=== PATIENT | female | born 1990 | race Caucasian/White ===

== ENCOUNTER → 2022-02-27 09:23 | Outpatient (BNVA) | payer OTHER, SELFPAY | PROVIDERS: Family Provider Family Medicine; PCP Family Medicine; Visit Provider Obstetrics & Gynecology | DX: N93.9 Abnormal uterine and vaginal bleeding, unspecified (principal) | CPT/HCPCS: 83001; 84146; 84443; 84702; 85025 ==

== ENCOUNTER → 2022-03-12 07:33 | Outpatient (BNVA) | payer OTHER, SELFPAY | PROVIDERS: Family Provider Family Medicine; PCP Family Medicine; Visit Provider Obstetrics & Gynecology | DX: N93.9 Abnormal uterine and vaginal bleeding, unspecified (principal) | CPT/HCPCS: 76830 ==

== ENCOUNTER → 2022-03-17 14:04 | Outpatient (BNVA) | payer OTHER, SELFPAY | PROVIDERS: Family Provider Family Medicine; PCP Family Medicine; Visit Provider Obstetrics & Gynecology | DX: Z12.4 Encounter for screening for malignant neoplasm of cervix (principal) | CPT/HCPCS: 87624 ==

== ENCOUNTER 2022-11-18 06:20 | Outpatient (CLI) | payer OTHER, SELFPAY ==
--- NOTE | 2022-11-18 06:45 | US_ITS ---
WS: [id number] RIGHT UPPER QUADRANT ULTRASOUND HISTORY: K81.1 - Chronic cholecystitis COMPARISON: 09/25/2014 Liver: 13.5 cm in length. Normal size liver and echogenicity. No bile duct dilatation or mass. Portal Vein: Normal hepatopetal flow with monophasic waveform. Gallbladder: Normally distended gallbladder with no stones or wall thickening. CBD: 0.3 cm Pancreas: Normal size and echogenicity. Right kidney: 10.5 cm in length. Normal size and echogenicity. No hydronephrosis or mass. Aorta and IVC: Unremarkable abdominal aorta and IVC. No ascites. US/US gall bladder 17674 IMPRESSION: Normal RIGHT upper quadrant ultrasound.
== END 2022-11-18 06:21 | disposition home or self-care (01) ==
PROVIDERS: PCP Family Medicine; Visit Provider Family Medicine
DX: K81.1 Chronic cholecystitis (principal)
CPT/HCPCS: 76705

== ENCOUNTER → 2023-11-02 08:52 | Outpatient (BNVA) | payer BC, SELFPAY | PROVIDERS: PCP Family Medicine; Visit Provider Obstetrics & Gynecology | DX: R10.2 Pelvic and perineal pain (principal) | CPT/HCPCS: 76830 ==

== ENCOUNTER 2023-12-14 15:16 | Observation (INO) | payer BC, SELFPAY ==
[2023-12-06 11:33] LABS: Basophils % 0.8 %; Eosinophils # 0.1 10^3/uL (0.0-0.8); Eosinophils % 2.2 %; Hematocrit 39.5 % (36-47); Lymphocytes # 1.8 10^3/uL (0.8-4.8); Lymphocytes % 36.4 %; Mean Corpuscular HGB Conc 33.2 g/dL (30-55); Mean Corpuscular Hemoglobin 29.6 pg (27-33); Mean Corpuscular Volume 89.4 fl (85-98); Mean Platelet Volume 10.5 fL (7.4-10.4); Monocytes # 0.3 10^3/uL (0.2-0.9); Monocytes % 6.8 %; Neutrophils # 2.68 10^3/uL (1.8-7.7); Neutrophils % 53.6 %; Nucleated Red Blood Cells % 0 %; Platelet Count 299 10^3/cmm (157-399); Red Blood Count 4.42 10^6/uL (3.85-5.65); Red Cell Distribution Width 13.1 % (12.1-15.1)
[2023-12-06 11:39] LABS: OR HCG Qualitative Urine Negative (Negative)
[2023-12-06 11:43] LABS: Add Urine Microscopic? YES; Bilirubin Urine Neg (Negative); Blood Urine Neg (Negative); Glucose Urine UA Norm (Normal); Ketones Urine 1+ (Negative); Leukocyte Esterase Urine Negative (Negative); Nitrate Urine Negative (Negative); Protein Urine Neg (Negative); Specific Gravity, Urine 1.025 (1.005-1.030); Urine Appearance Slightly Cloudy (CLEAR); Urine Color Yellow (Yellow); Urobilinogen Urine 1 mg/dL (Negative); pH Urine 5 (5-7)
[2023-12-06 11:47] LABS: Add Urine Culture? No; Bacteria Urine 1+ /hpf; WBC Urine RARE /hpf (0-5)
[2023-12-06 11:49] LABS: Alanine Aminotransferase 9 U/L (0-33); Albumin Level 3.9 g/dL (3.5-5.2); Alkaline Phosphatase 59 U/L (35-105); Anion Gap 12.9 (5-19); Aspartate Amino Transferase 13 U/L (0-32); Blood Urea Nitrogen 8 mg/dL (6-20); Calcium 8.6 mg/dL (8.5-10.5); Carbon Dioxide 22 mmol/L (22-29); Chloride 102 mmol/L (98-107); Glomerular Filtration Rate 113.8 mL/min (90-130); Glucose 119 mg/dL (65-115); Osmolality Calculated 275 mOsm/kg (285-295); Potassium 3.9 mmol/L (3.5-5.1); Sodium 133 mmol/L (136-145); Total Bilirubin 0.2 mg/dL (0.15-1.2); Total Protein 6.9 g/dL (6.6-8.7)
[2023-12-14] VITALS (14 sets, daily range): BP systolic 98–136; BP diastolic 51–87; PULSE 51–91; RESP 16–18; TEMP 36.1–36.8; O2SAT 96–100; BMI 26.3
[2023-12-14 12:55] LABS: OR HCG Qualitative Urine Negative (Negative)
[2023-12-14] MEDS: scopolamine 1.5 Patch 1 PATCH TRANSDERMA (12:58)
[2023-12-14] MEDS: sodium chloride 0.9% 500 ML IV (13:03)
--- NOTE | 2023-12-14 13:15 | ANES.PREANE2 ---
Pre-Anesthetic Assessment Height/Weight: Height 1.57 m Weight 65.317 kg Temp Pulse Resp BP Pulse Ox O2 Del Method 98.2 F 72 17 107/74 99 Room Air 12/14/23 12:36 12/14/23 12:36 12/14/23 12:36 12/14/23 12:36 12/14/23 12:36 12/14/23 12:36 Preop Diagnosis: chronic pelvic pain, dysmenorrhea, dyspareunia Operation Date: 12/14/23 13:55 Proposed Procedures p Total Vaginal Hysterectomy 39871, R10.2, N93.9, N80.3, D21.9(Not Applicable) - Joel Valdivia MD Familial anesthetic complications: None Was Beta Karl taken within 24 hours: N/A Was Clonidine taken within 24 hours: N/A Last intake: Intake Last Liquid Date 12/13/23 Last Liquid Time 22:00 Last Solid Date 12/13/23 Last Solid Time 20:00 Social No alcohol and No tobacco Exam alert, oriented x 3, clear to auscultation bilaterally and regular rate & rhythm Airway Mallampati: Class II Dentition: false GI Gastroesophageal Reflux Disease Neuropsych Anxiety Anesthetic Plan ASA status: 2 Anesthesia: General Risk of > 500 ml blood loss (7ml/kg in children): No Medications/Allergies Home Medications Medication Instructions Recorded Confirmed Last Taken Type sertraline 25 mg tablet (Zoloft) 37.5 mg (1.5 x 25 mg) PO DAILY 90 06/01/23 12/06/23 12/13/23 Rx days #135 tabs fluticasone 250 mcg-salmeterol 50 1 inh inhalation BID 30 days #60 ea 10/01/23 12/06/23 12/13/23 Rx mcg/dose blistr powdr for inhalation diazepam 5 mg tablet 2.5 mg (1/2 x 5 mg) PO BID PRN 10/14/23 12/06/23 12/14/23 Rx anxiety 60 days #60 tabs norethindrone-e.estradiol 1 tab PO DAILY #84 tabs 10/15/23 12/06/23 12/11/23 Rx triphasic 0.5 mg/0.75 mg/1 mg-35 mcg tablet (Nortrel (28)) albuterol sulfate 90 mcg/actuation 1 puff inhalation PRN 12/06/23 12/06/23 Unknown History aerosol inhaler (ProAir HFA) montelukast 10 mg tablet 10 mg PO PRN 12/06/23 12/06/23 Unknown History pantoprazole 40 mg tablet,delayed 40 mg PO PRN 12/06/23 12/06/23 12/14/23 History release Allergies Allergy/AdvReac Type Severity Reaction Status Date / Time Penicillins Allergy rash Verified 12/06/23 07:56 Current Medications Generic Name Dose Route Start Last Admin Trade Name Shaneq PRN Reason Stop Dose Admin Sodium Chloride 500 mls @ 500 mls/hr 12/14/23 12:25 12/14/23 13:03 Sodium Chloride 0.9% IV 12/14/23 13:24 500 mls/hr ONCE ONE Administration [facility] Anesthesia Medical History Psychiatric care Asthma Nicotine use disorder History of live X 2. Surgical History S/P LEEP (loop electrosurgical excision procedure) (Unknown) Tubal ligation status Family History Grandmother Diabetes paternal Mother Hypertension Other Thyroid disease Denies family history of Colon cancer Ovarian cancer Clotting disorder Heart disease Hyperlipidemia Breast cancer Anesthesia complication Bleeding disorder Uterine cancer Stroke Social History Smoking and tobacco/nicotine status: former use of tobacco/nicotine Female Reproductive History Date of last menstrual period: 12/13/23 Data Anesthesia 12/06/23 10:55 12/06/23 11:00 Cardiac Studies: No Data to Display
[2023-12-14] MEDS: midazolam 1 mg/mL INJ 2 mL 2 MG IVP (13:26)
[2023-12-14] MEDS: vancomycin 1,000 MG in sodium chloride 0.9% 250 ML 166 MG IV (13:27)
[2023-12-14] MEDS: sodium chloride 0.9% 1,000 ML 30 ML IV (13:41)
--- NOTE | 2023-12-14 13:53 | W.PM.OPSUD ---
Surgery/Procedure H&P Update DATE OF PROCEDURE: December 14, 2023 DATE H&P PERFORMED: 12/06/23 H&P UPDATE INFORMATION: I have reviewed H&P completed within last 30 days, I have examined patient prior to procedure and No changes to prior documentation PREOP DIAGNOSIS: chronic pelvic pain, dysmenorrhea, dyspareunia PLANNED PROCEDURE: Operation Date: 12/14/23 13:55 Proposed Procedures p Total Vaginal Hysterectomy 55851, R10.2, N93.9, N80.3, D21.9(Not Applicable) - Joel Valdivia MD
[2023-12-14] MEDS: levofloxacin-dextrose 5 % 500 MG/100 ML PREMIX 100 MG IV (13:57)
[2023-12-14] MEDS: lidocaine-epi 2% PF 1:200,000 20 mL SDV XX (14:30)
--- NOTE | 2023-12-14 15:04 | PM.OP ---
Operative Report Date of procedure: December 14, 2023 Pre-op diagnosis: Pelvic pain Dysmenorrhea Dyspareunia Post-op diagnosis: same Procedure done: Total vaginal hysterectomy Specimens removed/disposition: Uterus Surgeon: Joel Valdivia MD Estimated blood loss (mL): 100 IV fluids (mL): 350 Urine output (mL): 50 Complications: None Findings: Enlarged uterus Procedure: After informed consent and risks, benefits, indications and alternatives reviewed with the patient was taken to the operating room. The patient was placed in dorsal lithotomy position prepped, and draped in the usual sterile fashion. The pre-procedure timeout verifying the correct patient, procedure, site and side, could not requirements was performed and acknowledge by the OR team. A Cruz catheter was placed. A Bookwalter vaginal retractor was placed into the vagina in usual manner visualize the cervix. Cervix was grasped with a single tooth tenaculum and circumferentially infiltrated with 2% lidocaine with epinephrine. Then cervix was circumferentially incised with bovie and the bladder was dissected off the pubovesical cervical fascia anteriorly with a sponge stick and Metzenbaum scissors. The anterior peritoneal reflection was identified and the anterior cul-de-sac was entered sharply with Metzenbaum scissors. The same procedure was performed posteriorly and a posterior colpotomy was made through the posterior cul-de-sac space without difficulty and the posterior blade of the Bookwalter vaginal retractor was advanced posteriorly into the cul-de-sac. At this time, the left and right uterosacral ligaments were isolated and ligated with 0 Vicryl. The LigaSure device was placed over the uterosacral ligaments on either side and was then used in a serial fashion up through the cardinal ligaments bilaterally cross-clamped, cut, and sealed with the LigaSure device. Finally, the uterine arteries were cross-clamped, cut, sealed and ligated with the LigaSure device. Hemostasis was assured. The broad ligaments were then serially clamped, sealed and cut with the LigaSure device on both sides. Excellent hemostasis was visualized. Both cornua were clamped, sealed and cut with the LigaSure device. Then the pedicles were then suture ligated with excellent hemostasis. The uterus was excised and submitted for pathologic evaluation. No other abnormalities were noted in the pelvic cavity. The peritoneum was then closed in a pursestring fashion with 0 Vicryl suture. The vaginal cuff angles were closed with [id number] #0 Vicryl suture on both sides and transfixed with the ipsilateral cardinal and uterosacral ligaments. The remainder of the vaginal cuff was closed with #0 Vicryl in a running locked fashion. At this time, instruments were removed from the vagina at hemostasis assured. Cruz catheter was noted yielding clear demond urine. The patient was taken out of dorsal lithotomy position and awakened from the general anesthesia. The patient tolerated the procedure well and was taken to the PACU recovery room in a stable condition. Sponge, lap, needle and instruments counts were correct x3.
--- NOTE | 2023-12-14 15:50 | ANE.PACU2 ---
Inpatient post-anesthesia follow up: Airway intact: Yes Vital signs: Temperature 97 F Pulse Rate 69 Respiratory Rate 18 Blood Pressure 105/66 Pulse Oximetry 98 Oxygen Delivery Me thod Room Air Oxygen Flow Rate Fraction of Inspir ed Oxygen Hydration adequate: Yes Nausea and vomiting: No Pain level: 1 Mental status: Baseline
[2023-12-14] MEDS: ondansetron 2 mg/ML SDV 2 mL 4 MG IVP (17:05)
[2023-12-14] MEDS: ketorolac 30 mg/mL INJ IVP ×2 (17:06→22:52)
[2023-12-14] MEDS: sodium chloride 0.9% 1,000 ML 125 ML (18:00)
[2023-12-14] MEDS: HYDROcodone-acetaminophen 5-325 mg Tablet PO (19:43)
[2023-12-15 05:06] VITALS: BP 92/50; PULSE 60; RESP 18; TEMP 36.7; O2SAT 98
[2023-12-15] MEDS: ketorolac 30 mg/mL INJ IVP (05:12)
[2023-12-15] MEDS: HYDROcodone-acetaminophen 5-325 mg Tablet PO (05:12)
[2023-12-15 05:30] LABS: Hematocrit 35.4 % (36-47); Mean Corpuscular HGB Conc 33.1 g/dL (30-55); Mean Corpuscular Hemoglobin 29.8 pg (27-33); Mean Corpuscular Volume 90.1 fl (85-98); Mean Platelet Volume 10.2 fL (7.4-10.4); Platelet Count 261 10^3/cmm (157-399); Red Blood Count 3.93 10^6/uL (3.85-5.65); Red Cell Distribution Width 13.1 % (12.1-15.1); White Blood Count 10.41 10^3/uL (3.29-11.43)
--- NOTE | 2023-12-15 09:52 | P.DS_ITS ---
Discharge Providers CLIENT DELIVERY MANAGER Date of Admission: 12/14/23 15:16 Date of Discharge: 12/15/23 Attending Provider at Admission: Joel Valdivia MD Attending Provider at Discharge: Joel Valdivia MD Primary Care Provider: Tricia Josue MD Reason for Visit Reason for Visit: D21.9, N80.03, N93.9, R10.2 Hospital Course Hospital Course Ms. Alegria is a 33 year old , with a history of chronic pelvic pain, dysmenorrhea, and dyspareunia unresponsive to medical management. Admitted for total vaginal hysterectomy. The procedure was performed without complication. She is ambulating without difficulty. Overnight observation has been uneventful. Tolerating diet well. She is afebrile and hemodynamically stable postoperative day 1. She was counseled regarding limitations of weight lifting to 10 pounds and pelvic rest for 6 weeks (no sex, no tampons, no vaginal douches). Return to the emergency room if any fever, increased bleeding or pain. Physical Exam Narrative: GA: Alert and oriented ?3. HEENT: WNL. Heart: Regular rate and rhythm. Lungs: Clear to auscultation bilaterally. Abdomen: Bowel sounds present, nontender. 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 Extremities: No edema, no cyanosis, no calves pain. Urinary Catheter Management: Cruz: Cath Placed During This Visit: yes, but has since been removed by the nurse Reason for Continuing Indwelling Catheter: Decision to DC Catheter Urinary Catheter Date of Insertion: 12/14/23 Urinary Catheter Time of Insertion: 14:23 Date Urinary Catheter Removed: 12/15/23 Time Urinary Catheter Discontinued: 05:23 History History History 2 Term 2 0 Miscarriages/Ectopic 0 Living Children 2 Discharge Data Studies Completed and Pending Pending at discharge Category Date Time Status Pathology: Surgical [PTH] Routine Pth 12/14/23 14:53 Received Laboratory Results WBC 10.41 10^3/uL (3.29-11.43) 12/15/23 05:15 RBC 3.93 10^6/uL (3.85-5.65) 12/15/23 05:15 Hgb 11.70 g/dL (11.27-16.99) 12/15/23 05:15 Hct 35.4 % (36-47) L 12/15/23 05:15 MCV 90.1 fl (85-98) 12/15/23 05:15 MCH 29.8 pg (27-33) 12/15/23 05:15 MCHC 33.1 g/dL (30-55) 12/15/23 05:15 RDW 13.1 % (12.1-15.1) 12/15/23 05:15 Plt Count 261 10^3/cmm (157-399) 12/15/23 05:15 MPV 10.2 fL (7.4-10.4) 12/15/23 05:15 Neut % (Auto) 53.6 % 12/06/23 10:55 Lymph % (Auto) 36.4 % 12/06/23 10:55 [place] % (Auto) 6.8 % 12/06/23 10:55 Eos % (Auto) 2.2 % 12/06/23 10:55 Baso % (Auto) 0.8 % 12/06/23 10:55 Neut # (Auto) 2.68 10^3/uL (1.8-7.7) 12/06/23 10:55 Lymph # (Auto) 1.8 10^3/uL (0.8-4.8) 12/06/23 10:55 [place] # (Auto) 0.3 10^3/uL (0.2-0.9) 12/06/23 10:55 Eos # (Auto) 0.1 10^3/uL (0.0-0.8) 12/06/23 10:55 Baso # (Auto) 0.0 10^3/uL (0.0-0.1) 12/06/23 10:55 Nucleated RBC % (auto) 0 % 12/06/23 10:55 Nucleated RBCs # 0.0 /100WBC 12/06/23 10:55 Sodium 133 mmol/L (136-145) L 12/06/23 11:00 Potassium 3.9 mmol/L (3.5-5.1) 12/06/23 11:00 Chloride 102 mmol/L (98-107) 12/06/23 11:00 Carbon Dioxide 22 mmol/L (22-29) 12/06/23 11:00 Anion Gap 12.9 (5-19) 12/06/23 11:00 BUN 8 mg/dL (6-20) 12/06/23 11:00 Creatinine 0.6 mg/dL (0.5-0.9) 12/06/23 11:00 GFR Calculation 113.8 mL/min (90-130) 12/06/23 11:00 Glucose 119 mg/dL (65-115) H 12/06/23 11:00 Calculated Osmolality 275 mOsm/kg (285-295) L 12/06/23 11:00 Calcium 8.6 mg/dL (8.5-10.5) 12/06/23 11:00 Total Bilirubin 0.2 mg/dL (0.15-1.2) 12/06/23 11:00 AST 13 U/L (0-32) 12/06/23 11:00 ALT 9 U/L (0-33) 12/06/23 11:00 Alkaline Phosphatase 59 U/L (35-105) 12/06/23 11:00 Total Protein 6.9 g/dL (6.6-8.7) 12/06/23 11:00 Albumin 3.9 g/dL (3.5-5.2) 12/06/23 11:00 Globulin 3.0 g/dL (1.3-4.6) 12/06/23 11:00 Urine Color Yellow (Yellow) 12/06/23 10:55 Urine Appearance Slightly cloudy (CLEAR) 12/06/23 10:55 Urine pH 5 (5-7) 12/06/23 10:55 Ur Specific [place] 1.025 (1.005-1.030) 12/06/23 10:55 Urine Protein Neg (Negative) 12/06/23 10:55 Urine Glucose (UA) Norm (Normal) 12/06/23 10:55 Urine Ketones 1+ (Negative) H 12/06/23 10:55 Urine Blood Neg (Negative) 12/06/23 10:55 Urine Nitrate Negative (Negative) 12/06/23 10:55 Urine Bilirubin Neg (Negative) 12/06/23 10:55 Urine Urobilinogen 1 mg/dL (Negative) H 12/06/23 10:55 Ur Leukocyte Esterase Negative (Negative) 12/06/23 10:55 Urine RBC None /hpf (0-2) 12/06/23 10:55 Urine WBC Rare /hpf (0-5) 12/06/23 10:55 Ur Squamous Epith Cells 5-10 /hpf (0-5) H 12/06/23 10:55 Amorphous Sediment Not Reportable 12/06/23 10:55 Urine Bacteria 1+ /hpf (NONE) H 12/06/23 10:55 Urine HCG, Qual Negative (Negative) 12/14/23 12:26 Blood Type O Positive 12/14/23 12:55 Rho(D) Type Rh positive 12/14/23 12:55 Antibody Screen Negative 12/14/23 12:55 Vitals Last Vital Signs Temp 98.1 F 12/15/23 05:06 Pulse 60 12/15/23 05:06 Resp 18 12/15/23 05:06 BP 92/50 12/15/23 05:06 Pulse Ox 98 12/15/23 05:06 O2 Del Method Room Air 12/15/23 08:00 Results Labs OB ([facility]): Blood Type O Positive 12/14/23 Antibody Screen Negative 12/14/23 Hct 35.4 % (36-47) L 12/15/23 Hgb 11.70 g/dL (11.27-16.99) 12/15/23 Rho(D) Type Rh positive 12/14/23 Plt Count 261 10^3/cmm (157-399) 12/15/23 TSH 1.53 uIU/mL (0.27-4.20) 02/27/22 FSH 7.3 mIU/mL 02/27/22 Ser , Semi-Qnt 0.50 mIU/mL 02/27/22 Pap Smear Interpret See note 03/17/22 Prolactin 9.17 ng/mL (4.8-23.3) 02/27/22 Discharge Plan Discharge Patient Disposition: Home Condition: Stable Prescriptions: New hydrocodone-acetaminophen 5-325 mg tablet 1 tab PO Q4H PRN (Reason: pain) Qty: 30 0RF acetaminophen 325 mg capsule 325 mg PO Q4H PRN (Reason: fever or postoperative pain) Qty: 60 0RF ibuprofen 800 mg tablet 800 mg PO TID PRN (Reason: pain) Qty: 60 0RF Continued Nortrel (28) 0.5/0.75/1 mg- 35 mcg tablet 1 tab PO DAILY Qty: 84 4RF fluticasone propion-salmeterol 250-50 mcg/dose blister with device 1 inh inhalation BID 30 Days Qty: 60 11RF diazepam 5 mg tablet 2.5 mg PO BID PRN (Reason: anxiety) 60 Days Qty: 60 1RF sertraline [Zoloft] 25 mg tablet 37.5 mg PO DAILY 90 Days Qty: 135 2RF pantoprazole 40 mg tablet,delayed release (DR/EC) 40 mg PO PRN Rx Instructions: TAKE 1 TABLET BY MOUTH EVERY DAY FOR STOMACH ACID montelukast 10 mg tablet 10 mg PO PRN Rx Instructions: TAKE 1 TABLET BY MOUTH EVERY DAY ProAir HFA 90 mcg/actuation HFA aerosol inhaler 1 puff inhalation PRN Rx Instructions: INHALE 1 PUFF BY MOUTH EVERY DAY Discharge Orders: Discharge Order (Routine); Ordered 12/15/23 Ordered By: Joel Valdivia Referrals: Joel Valdivia MD [Physician] - 2 weeks Discharge Diet: Usual diet Discharge Activity: Limit activity as instructed Patient Instructions: Acute Wound Care (DC), Opioid Safety (DC), Vaginal Hysterectomy (DC), OB Discharge Report, OB Food/Drug Interaction Guide, Opioid Safety, Post Anesthesia Care Activity Restrictions/Additional Instructions: 1. Please call [facility] on next working day to make your post-operative appointment in 2 weeks. 2. Please stay home until you come back to the clinic on first post-hospatiliza tion check up. 3. Please follow instructions on your medications CAREFULLY. 4. If you have abdominal incision, do not cover it unless dressing is necessary because of drainage. OK to shower, but avoid bath. Leave steri-strips until they fall off. If they are still on one week after surgery, you may remove them. 5. If you had vaginal surgery or vaginal repair, Dr. Valdivia may instruct you to take SITZ bath. 6. Yellow, blood tinged odorous vaginal discharge is usually normal after hysterectomy or vaginal surgeries. 7. No SEXUAL INTERCOURSE, tampons, or douches until you are completely released from the post-operative care. 8. Avoid constipation by eating right and maybe using some Metamucil or Milk of Magnesia. 9. All prescription refills are given during the working hours. Please do no wait till it runs out. Call the clinic at [phone] before your medication runs out. The clinic will get in touch with your doctor to prescribe medications if necessary. 10. Please remain within 40 mile radius from our hospital because emergencies do happen now and then during the post-operative period. 11. If you have stairs at home, take one step at a time slowly and minimize the number of trips. It helps to stay in one floor for the next few days. No lifting except what you can lift by one hand until you are released from the post-operative care. 12. Driving is discouraged until you are well healed. It may be 3-4 weeks before you feel strong enough to drive. You should be able to turn and look through the rear window without pain and you should be able to push the brake pedal very hard without pain before you drive. No fast rules, but SAFETY should be your primary concern. DO NOT drive if you are on sedating medications such as narcotics. 13. Call the clinic (during working hours) to make urgent appointment or go to the Emergency room, if any of the following occurs: i. Vaginal bleeding becomes heavy, more than a period. ii. Incision becomes red and sore, or drains pus. iii. Your TEMPERATURE is over 100.4F or you have chill. iv. IV site becomes red and swollen (a little ``knot?? is usually OK) v. Persistent nausea and vomiting vi. Persistent constipation or diarrhea vii. Rash or allergic reaction to medications. Discharge Attestations CLIENT DELIVERY MANAGER Time Spent in Discharge Care*: greater than 30 min Coding Level of Care Code Acute Code for Chg Fwd
[2023-12-15] MEDS: docusate sodium 100 mg Capsule PO (10:21)
[2023-12-15 10:25] VITALS: BP 110/73; PULSE 53; RESP 17; TEMP 36.8; O2SAT 99
[2023-12-15 11:04] VITALS: BP 110/73; PULSE 53; RESP 17; TEMP 36.8; O2SAT 99
== END 2023-12-15 11:04 | disposition home or self-care (01) ==
LOC: OBGYN 15:16
PROVIDERS: Anesthesiology; Admitting Provider Obstetrics & Gynecology; PCP Family Medicine; Visit Provider Obstetrics & Gynecology
PROC: (CPT 58260; principal; 2023-12-14 13:45)
DX: N94.6 Dysmenorrhea, unspecified (principal); N94.10 Unspecified dyspareunia; N72 Inflammatory disease of cervix uteri; K21.9 Gastro-esophageal reflux disease without esophagitis; F41.9 Anxiety disorder, unspecified; Z87.891 Personal history of nicotine dependence
CPT/HCPCS: 58260; 36415; 80053; 81001; 81025; 85025; 85027; 86850; 86900; 88307; G0378; J1100; J1200; J1885; J1956; J2250; J2405; J2704; J3010; J3370; J3490; J7030; J7040; J7050